=== PATIENT | female | born 2000 | race African-American/Black ===

== ENCOUNTER 2022-07-27 12:54 | Emergency (ER) | payer MEDICAID ==
[~2022-07-27] VITALS: Ht 162.6 cm; Wt 59.0 kg
[2022-07-27] MEDS ORDERED: CYCL10TA21 MT (14:14)
[2022-07-27] MEDS ORDERED: ACET-2708 MT (14:14)
[2022-07-27 14:19] VITALS: BP 132/71
== END 2022-07-27 14:27 | disposition home or self-care (01) ==
LOC: ER 12:54
DX: S16.1XXA Strain of muscle, fascia and tendon at neck level, initial encounter (principal); V49.9XXA Car occupant (driver) (passenger) injured in unspecified traffic accident, initial encounter; Y93.89 Activity, other specified; Y92.89 Other specified places as the place of occurrence of the external cause; Y99.8 Other external cause status
CPT/HCPCS: 99283